=== PATIENT | female | born 1960 | race Caucasian/White ===

== ENCOUNTER → 2020-05-27 09:02 | Outpatient (CLI) | payer BC, SELFPAY ==
--- NOTE | 2020-05-27 | DI.US.S_ITS ---
PROCEDURE: US PELVIC COMPLETE INDICATIONS: PMB TECHNIQUE: Real-time scanning was performed of the pelvic organs, with image documentation. Additional endovaginal scanning was necessary due to incomplete visualization of the adnexal and endometrial structures by transabdominal scanning. COMPARISON: None. FINDINGS: Transabdominal scanning: Limited scanning through the kidneys shows no hydronephrosis. No pathologic free abdominal or pelvic fluid. Endovaginal scanning: Uterus: Uterus is normal in size at 8.5 x 4.9 x 4.5 cm. Hypoechoic uterine lesions are seen, which are attributed to fibroids. They measure as follows: Mid uterus posteriorly, subserosal, 2.4 x 1.3 x 2 cm Left anterior uterus, submucosal, 3 x 2.8 x 3.4 cm Left anterior uterus, subserosal, 2 x 1.5 x 2.2 cm The endometrial stripe cannot be well seen, secondary to the uterine fibroids. Ovaries: The right ovary is not seen. The left ovary measures 2.9 x 1.9 x 1.4 cm and is unremarkable. No adnexal masses can be seen on either side. IMPRESSION: Prominent uterine fibroids are seen. Because of the fibroids, the endometrial stripe is not well seen in this patient with a presenting history of postmenopausal bleeding. Please consider a dedicated gynecologic protocol MRI (without and with contrast) for further evaluation (assuming that there is no contraindication). Dictated by: Erasmo Walker M.D. on 05/27/2020 at 12:06 Approved by: Erasmo Walker M.D. on 05/27/2020 at 12:08
== END ==
PROVIDERS: PCP Family Medicine; Referring Provider Family Medicine; Visit Provider Family Medicine
DX: N95.0 Postmenopausal bleeding (principal); D25.0 Submucous leiomyoma of uterus; D25.2 Subserosal leiomyoma of uterus
CPT/HCPCS: 76830; 76856

== ENCOUNTER → 2021-08-31 09:02 | Outpatient (CLI) | payer OTHER, SELFPAY ==
[2021-09-01 14:25] LABS: Hematocrit 41.2 % (36-46); Hemoglobin 13.8 g/dL (12.0-16.0); Mean Corpuscular HGB Conc 33.5 % (30-36); Mean Corpuscular Hemoglobin 30.6 PG (26-34); Mean Corpuscular Volume 91.3 fL (80-100); Platelet Count 215 X10^3/uL (150-400); Red Blood Cell Count 4.52 X10^6/uL (4.0-5.2); Red Cell Distribution Width 13.4 % (11.6-14.8); White Blood Cell Count 6.3 X10^3/uL (4.5-11.0)
[2021-09-01 14:52] LABS: Neutrophils Absolute Manual 2898 /uL (3000-5900); Total Cells Counted 100
[2021-09-01 17:16] LABS: Alanine Aminotransferase 27 IU/L (<35); Albumin 4.3 g/dL (3.5-5.0); Albumin Globulin Ratio 1.8 (1.0-2.8); Alkaline Phosphatase 72 U/L (38-126); Aspartate Aminotransferase 33 IU/L (14-36); BUN Creatinine Ratio 17.9 (6-22); Bilirubin Total 0.4 mg/dL (0.2-1.3); Blood Urea Nitrogen 14 mg/dL (7-17); Calcium 9.8 mg/dL (8.4-10.2); Carbon Dioxide 28 mmol/L (22-32); Chloride 106 mmol/L (98-107); Cholesterol 298 mg/dL (140-199); Estimated Glomerular Filt Rate > 60.0 mL/min (>60); Globulin 2.4 g/dL (1.7-4.1); Glucose 96 mg/dL (80-110); HDL Cholesterol 91 mg/dL (40-60); HEMOLYSIS < 15 (0-50); LDL Cholesterol Calculated 189 mg/dL (<100); Potassium 4.8 mmol/L (3.4-5.1); Sodium 141 mmol/L (137-145); Total Protein 6.7 g/dL (6.3-8.2); Triglycerides 90 mg/dL (35-150)
== END ==
PROVIDERS: PCP Family Medicine; Visit Provider Family Medicine
DX: R59.1 Generalized enlarged lymph nodes (principal); R03.0 Elevated blood-pressure reading, without diagnosis of hypertension; I25.10 Atherosclerotic heart disease of native coronary artery without angina pectoris
CPT/HCPCS: 80053; 80061; 85025

== ENCOUNTER → 2021-10-18 09:11 | Outpatient (CLI) | payer OTHER, SELFPAY ==
--- NOTE | 2021-10-18 09:13 | DI.US.S_ITS ---
PROCEDURE: US THYROID INDICATIONS: ?LYMPHNODE RIGHT SUPRACLAVICULAR. ?GOITER TECHNIQUE: Real-time scanning was performed of the thyroid gland, with image documentation. COMPARISON: None. FINDINGS: Right: Thyroid lobe measures 5 x 1.5 x 1.5 cm, and is homogeneous in echotexture. Left: Thyroid lobe measures 4.3 x 1.3 x 0.9 cm, and is homogenous in echotexture. Isthmus: 0.2 thick. Tiny cystic thyroid nodules less than 0.5 cm. No adenopathy. At the area of clinical concern in the right supraclavicular neck there is a subtle ill-defined focus of hypoechogenicity. No suspicious blood flow. IMPRESSION: 1. Thyroid gland is within normal limits. 2. No adenopathy. 3. A subtle ill-defined focus of hypoechogenicity in the right supraclavicular neck in the region of clinical concern. This could represent edema. -Recommend continued clinical surveillance. Dictated by: Jaspreet Thacker M.D. on 10/18/2021 at 10:51 Approved by: Jaspreet Thacker M.D. on 10/18/2021 at 10:55
== END ==
PROVIDERS: PCP Family Medicine; Referring Provider Family Medicine; Visit Provider Family Medicine
DX: E04.9 Nontoxic goiter, unspecified (principal); R59.9 Enlarged lymph nodes, unspecified
CPT/HCPCS: 76536

== ENCOUNTER → 2022-12-22 09:26 | Outpatient (CLI) | payer OTHER, SELFPAY ==
[2022-12-22 19:27] LABS: Cholesterol 195 mg/dL (140-199); Triglycerides 55 mg/dL (35-150)
[2022-12-22 19:52] LABS: HDL Cholesterol 117 mg/dL (40-60); LDL Cholesterol Calculated 67 mg/dL (<100)
== END ==
PROVIDERS: PCP Family Medicine; Visit Provider Family Medicine
DX: E78.2 Mixed hyperlipidemia (principal)
CPT/HCPCS: 80061

== ENCOUNTER → 2023-02-15 08:42 | Outpatient (CLI) | payer OTHER, SELFPAY ==
--- NOTE | 2023-02-15 08:43 | DI.MG.S_ITS ---
BILATERAL DIGITAL SCREENING MAMMOGRAM 3D/2D WITH CAD: 02/15/2023 CLINICAL: Baseline exam. Routine screening. No prior exams were available for comparison. Both breasts are almost entirely fatty (category a/<25% glandular tissue). Current study was also evaluated with a Computer Aided Detection (CAD) system. There is an asymmetry in the right breast posterior depth superior region seen on the mediolateral oblique view only. There is an asymmetry in the left breast middle depth lateral region seen on the craniocaudal view only. No other significant masses or calcifications are seen in either breast. IMPRESSION: INCOMPLETE: NEEDS ADDITIONAL IMAGING EVALUATION The asymmetry in the right breast posterior depth superior region seen on the mediolateral oblique view only is indeterminate. Additional views with possible ultrasound are recommended. The asymmetry in the left breast middle depth lateral region seen on the craniocaudal view only is indeterminate. Additional views with possible ultrasound are recommended. Based on the Tyrer Cuzick model (a risk assessment model) the patient's lifetime risk is 7.5% and her 10 year risk is 3.1%. According to the ACR, ACS, and NCCN guidelines, an annual breast MRI exam along with mammogram is recommended if the patient's lifetime risk is 20% or greater. This exam was interpreted at Station ID: [id number]. NOTE: For mammograms, a report in lay terms will be sent to the patient. Approximately 15% of breast malignancies will not be visualized mammographically. In the management of a palpable breast mass, a negative mammogram must not discourage biopsy of a clinically suspicious lesion. Electronically Signed By: Scout Uribe M.D. acr/:02/15/2023 13:50:43 copy to: COLEEN GALLAGHER letter sent: Additional Imaging Needed ACR BI-RADS Category 0: Incomplete 3340F
--- NOTE | 2023-02-15 08:43 | DI.US.S_ITS ---
PROCEDURE: US CAROTID DOPPLER BI INDICATIONS: pulsating carotid vs jugular vein TECHNIQUE: Color and pulse Doppler interrogation was performed of both carotid systems, with image documentation and velocity measurements. COMPARISON: None. FINDINGS: Stenosis calculations are based on SRU (Society of Radiologists in Ultrasound) criteria. The flow velocities and the arterial waveforms are normal within both carotid arterial systems. The estimated degree of internal carotid artery stenosis is less than 50%. Antegrade flow is confirmed within both vertebral arteries. Additional scanning of the jugular veins demonstrates normal appearing jugular veins, with the right jugular base measuring 1.8 cm AP and the left jugular base measuring 1 cm AP. At the site of the clinically palpable lump involving the lateral supraclavicular area of the right neck, no ultrasound abnormalities are seen. No lipoma, node, or mass can be seen at this site. IMPRESSION: No imaging explanation is found for this patient's presenting symptoms. No masses, lipomas, or lymph nodes can be seen at the site of clinical concern involving the right neck within the lateral supraclavicular region. Normal jugular veins. No hemodynamically significant stenosis is seen. Dictated by: Erasmo Walker M.D. on 02/15/2023 at 9:25 Approved by: Erasmo Walker M.D. on 02/15/2023 at 9:27
== END ==
PROVIDERS: PCP Family Medicine; Referring Provider Physician Assistant; Visit Provider Physician Assistant
DX: Z12.31 Encounter for screening mammogram for malignant neoplasm of breast (principal); R09.89 Other specified symptoms and signs involving the circulatory and respiratory systems
CPT/HCPCS: 77063; 77067; 93880

== ENCOUNTER → 2023-03-02 08:49 | Outpatient (CLI) | payer OTHER, SELFPAY ==
--- NOTE | 2023-03-02 08:49 | DI.MG.S_ITS ---
BILATERAL DIGITAL DIAGNOSTIC MAMMOGRAM 3D/2D WITH ADDITIONAL VIEWS: 03/02/2023 CLINICAL: Additional evaluation requested from prior study. Comparison is made to exam dated: 02/15/2023 mammogram - [facility]. There are scattered areas of fibroglandular density in both breasts (category b / 25%-50% glandular tissue). There is a 1.2 cm oval mass with an indistinct margin in the right breast at 10 o'clock posterior depth. This is seen in additional views. There is a focal asymmetry in the left breast at 1 o'clock posterior depth. This is seen in additional views. No other significant masses or calcifications are seen in either breast. IMPRESSION: INCOMPLETE: NEEDS ADDITIONAL IMAGING EVALUATION The 1.2 cm oval mass in the right breast at 10 o'clock posterior depth is indeterminate. An ultrasound is recommended. The focal asymmetry in the left breast at 1 o'clock posterior depth is indeterminate. An ultrasound is recommended. Based on the Tyrer Cuzick model (a risk assessment model) the patient's lifetime risk is 6.3% and her 10 year risk is 2.6%. According to the ACR, ACS, and NCCN guidelines, an annual breast MRI exam along with mammogram is recommended if the patient's lifetime risk is 20% or greater. This exam was interpreted at Station ID: [id number]. NOTE: For mammograms, a report in lay terms will be sent to the patient. Approximately 15% of breast malignancies will not be visualized mammographically. In the management of a palpable breast mass, a negative mammogram must not discourage biopsy of a clinically suspicious lesion. Electronically Signed By: Donta Huizar M.D. lc/:03/02/2023 11:13:46 copy to: COLEEN GALLAGHER ACR BI-RADS Category 0: Incomplete 3340F
--- NOTE | 2023-03-02 08:49 | DI.US.S_ITS ---
LIMITED ULTRASOUND OF LEFT BREAST: 03/02/2023 CLINICAL: Patient returns today to evaluate a focal asymmetry in the left breast. Comparison is made to exams dated: 03/02/2023 mammogram and 02/15/2023 mammogram - [facility]. Color flow and real-time ultrasound of the left breast were performed. There is a 0.5 cm x 0.1 cm x 0.5 cm possible clustered microcysts in the left breast at 2 o'clock posterior depth 4 cm from the nipple, possibly corresponding in part to the mammographic focal asymmetry. IMPRESSION: PROBABLY BENIGN There is a 0.5 cm x 0.1 cm x 0.5 cm possible clustered microcysts in the left breast at 2 o'clock posterior depth 4 cm from the nipple, possibly corresponding in part to the mammographic focal asymmetry. Both the focal asymmetry in the left breast and this sonographic finding are probably benign. A follow-up mammogram and an ultrasound in 6 months are recommended to demonstrate stability. This exam was interpreted at Station ID: [id number]. Electronically Signed By: Donta Huizar M.D. lc/:03/02/2023 11:19:14 copy to: COLEEN GALLAGHER letter sent: Followup Recommended Ultrasound BI-RADS: 3 Probably benign
--- NOTE | 2023-03-02 08:49 | DI.US.S_ITS ---
ULTRASOUND OF RIGHT BREAST AND AXILLA: 03/02/2023 CLINICAL: Patient returns today to evaluate a focal asymmetry in the right breast. Comparison is made to exams dated: 03/02/2023 mammogram and 02/15/2023 mammogram - [facility]. Ultrasound of the right breast axilla was performed. There is a 0.7 cm x 0.7 cm x 1.2 cm mass with an indistinct margin in the right breast at 10 o'clock posterior depth 10 cm from the nipple. No significant abnormalities were seen sonographically in the right axilla. IMPRESSION: SUSPICIOUS OF MALIGNANCY The 0.7 cm x 0.7 cm x 1.2 cm mass in the right breast is at a low suspicion for malignancy. An ultrasound guided biopsy is recommended. This exam was interpreted at Station ID: [id number]. Electronically Signed By: Donta Huizar M.D. lc/:03/02/2023 11:17:00 copy to: COLEEN GALLAGHER letter sent: Biopsy Required Ultrasound BI-RADS: 4a Low suspicion for malignancy
== END ==
PROVIDERS: PCP Family Medicine; Referring Provider Family Medicine; Visit Provider Family Medicine
DX: R92.8 Other abnormal and inconclusive findings on diagnostic imaging of breast (principal); N63.11 Unspecified lump in the right breast, upper outer quadrant; N64.89 Other specified disorders of breast
CPT/HCPCS: 76642; 77066; G0279

== ENCOUNTER → 2023-03-14 08:41 | Outpatient (CLI) | payer OTHER, SELFPAY ==
--- NOTE | 2023-03-14 | PATH_ITS ---
[facility] Accession Number: [id number] No. of containers..01 Tissue . 01 Material submitted: . breast - RIGHT BREAST 10:00 10CMFN MASS . 01 Diagnosis: A. Right Breast, 10 o'clock, 10 cm From The Nipple, Biopsy: Fragments of cyst wall in background of fibrocystic change including fibrosis, apocrine cystic metaplasia, microcysts and focal adenosis. No evidence of atypia, carcinoma in situ or malignancy. . Comment: Deeper levels are examined. Clinical radiographic correlation is necessary. MRV 03/20/2023 1217 Local . 01 Electronically signed: . Cate Hall MD, Pathologist NPI- [id number] . 01 Gross description: . The specimen is received in formalin labeled with the patient's name, , and right breast 10 o'clock 10 cm FN, and consists of multiple yellow to solorzano soft tissue fragments aggregating to 2.2 x 0.9 x 0.2 cm. The specimen is inked green and submitted entirely in cassette A1. The specimen was removed on 03/14/2023 at 1023 hours, time in formalin not provided, cold ischemic time cannot be calculated, total fixation time is approximately 31 hours. ([id number]) /ALISSON 03/15/2023 0937 Local . 01 Pathologist provided ICD-10: N63.10 . 01 CPT . 416425 Performed at: [facility] [address] [place] [address] [id number] MD Silvino Bolden MD Phone: [phone]
--- NOTE | 2023-03-14 08:43 | DI.US.S_ITS ---
ULTRASOUND GUIDED BIOPSY RIGHT BREAST USING VACUUM DEVICE WITH POST MAMMOGRAPHIC AND ULTRASOUND IMAGIN03/14/2023 CLINICAL: Right breast mass. PATIENT CONSENT: Risks (minor bleeding, infection, vasovagal reaction and repeat procedure), benefits and alternatives were explained to the patient and written informed consent was obtained. Correlation is made to exams dated: 03/14/2023 mammogram, 03/02/2023 ultrasound, 03/02/2023 mammogram, and 02/15/2023 mammogram - [facility]. An ultrasound guided biopsy using real-time ultrasound was performed for the lobulated mass located in the right breast at 10 o'clock posterior depth. This was described on the previous ultrasound report. The skin was prepped in the usual manner. Local anesthetic was administered to the access site. The abnormality was approached from the lateral aspect. A 13 gauge biopsy needle was placed adjacent to the abnormality under ultrasound guidance. Once the needle was documented to be in the correct location, eight specimens were obtained using the Mammotome biopsy system. Post procedure mammographic and ultrasound imaging demonstrates the clip at the targeted area. The specimens were sent to the laboratory for pathological analysis. IMPRESSION: ULTRASOUND GUIDED BIOPSY BENIGN Ultrasound guided biopsy of the mass in the right breast middle depth was successful. Pathology indicates benign adenosis (AD), apocrine metaplasia (AM), fibrocystic changes (FC), and fibrosis. Pathology results are concordant with imaging findings. Recommend follow up left ultrasound and mammogram in 6 months to document stability. This exam was interpreted at Station ID: [id number]. Ed Tavarez M.D. fx,aty/:03/20/2023 18:46:35 copy to: COLEEN GALLAGHER
--- NOTE | 2023-03-14 08:43 | DI.MG.S_ITS ---
UNILATERAL RIGHT DIGITAL DIAGNOSTIC MAMMOGRAM 3D/2D: 03/14/2023 CLINICAL: Right post clip. Comparison is made to exams dated: 03/02/2023 ultrasound, 03/02/2023 ultrasound, 03/02/2023 mammogram, and 02/15/2023 mammogram - [facility]. There are scattered areas of fibroglandular density in the right breast (category b / 25%-50% glandular tissue). There is a biopsy marker at the biopsy site in the right breast. IMPRESSION: POST PROCEDURE MAMMOGRAM FOR MARKER PLACEMENT The biopsy marker is at the biopsy site. Electronically Signed By: Ed Gibson M.D. fx/:03/14/2023 12:25:14 copy to: COLEEN GALLAGHER ACR BI-RADS Category Post-procedure mammogram for marker placement
== END ==
PROVIDERS: PCP Family Medicine; Referring Provider Physician Assistant; Visit Provider Physician Assistant
DX: N60.81 Other benign mammary dysplasias of right breast (principal); N60.31 Fibrosclerosis of right breast; N60.01 Solitary cyst of right breast; N60.21 Fibroadenosis of right breast
CPT/HCPCS: 19083; 77065